=== PATIENT | male | born 1965 | race Caucasian/White ===

== ENCOUNTER 2017-12-03 16:35 | Emergency (ER) | payer OTHER ==
[2017-12-03] MEDS: KETOROLAC 30 MG/ML VIAL (J1885) IV (17:04)
[2017-12-03] MEDS: ONDANSETRON 4MG/2ML VIAL (J2405) IV (17:04)
[2017-12-03] MEDS: NS 1,000 ML IV (17:05)
[2017-12-03 17:07] LABS: HEMATOCRIT 45.3 % (42.0-52.0); HEMOGLOBIN 14.5 g/dl (13.5-17.5); MEAN CORPUSCULAR HEMOGLOBIN 25.4 pg (27.0-33.0); MEAN CORPUSCULAR VOLUME 79.5 fl (80.0-96.0); PLATELET COUNT, AUTOMATED 245 10^3/uL (150-450); RED CELL DISTRIBUTION WIDTH 13.8 % (11.5-14.5); WHITE BLOOD COUNT 15.1 10^3/uL (4.0-10.0)
[2017-12-03] MEDS ORDERED: METOCLOPRAMIDE INJ 10MG/2ML VIAL (J2765) As Ordered (17:25)
[2017-12-03] MEDS: METOCLOPRAMIDE INJ 10MG/2ML VIAL (J2765) IV (17:37)
[2017-12-03 17:42] LABS: ALBUMIN 4.1 GM/DL (3.2-5.2); ALBUMIN/GLOBULIN RATIO 1.32 (1.00-1.93); ALKALINE PHOSPHATASE 93 U/L (45-117); ALT/SGPT 74 U/L (12-78); ANION GAP 13 MEQ/L (8-16); AST/SGOT 37 U/L (7-37); BILIRUBIN,DIRECT 0.2 MG/DL (0.0-0.2); BILIRUBIN,TOTAL 0.8 MG/DL (0.2-1.0); BLOOD UREA NITROGEN 15 MG/DL (7-18); CALCIUM LEVEL 9.1 MG/DL (8.5-10.1); CARBON DIOXIDE LEVEL 21 MEQ/L (21-32); CHLORIDE LEVEL 110 MEQ/L (98-107); CREATININE FOR GFR 1.27 MG/DL (0.70-1.30); GLOMERULAR FILTRATION RATE > 60.0 (>56); GLUCOSE, FASTING 120 MG/DL (70-100); POTASSIUM SERUM 3.9 MEQ/L (3.5-5.1); SODIUM LEVEL 144 MEQ/L (136-145); TOTAL PROTEIN 7.2 GM/DL (6.4-8.2)
[2017-12-03] MEDS ORDERED: FLEET OIL RETENTION ENEMA PR (18:15)
[2017-12-03] MEDS: MAGNESIUM CITRATE 300 ML BTL PO (19:00)
== END 2017-12-03 19:07 | disposition home or self-care (01) ==
LOC: M ED 16:35
DX: K59.00 Constipation, unspecified (principal); I51.9 Heart disease, unspecified; E11.9 Type 2 diabetes mellitus without complications; E78.5 Hyperlipidemia, unspecified
CPT/HCPCS: J2405

== ENCOUNTER 2020-12-11 13:01 | Outpatient (RCR) | payer OTHER ==
[~2020-12-11 13:01] MED LIST: ASPI81TA85 PO; BACL10TA2 OR; BACL10TA2 PO; BUTR10DI2 TOP; DEXI60CA PO; LIPI10TA PO; LYRI20SO PO; METF500T PO; MICA5TAB OR; MICA5TAB PO; NEXI1CAP3 PO; NEXI20CA OR; NORT10CA2 OR; NORT50CA PO; TOPA25TA PO; ULTR50TA PO; VICO5TAB OR; VICO5TAB PO; WARF6TAB14 PO
[2020-12-19] MEDS ORDERED: PANT40TA29 PO (08:55)
[2020-12-19] MEDS ORDERED: GABA-283 PO (08:55)
[2020-12-19] MEDS ORDERED: XARE10TA PO (08:55)
[2020-12-19] MEDS ORDERED: TIZA4CAP6 PO (08:55)
[2020-12-19] MEDS ORDERED: METO50TA7 PO (08:55)
[2020-12-19] MEDS ORDERED: CLAR10CA3 PO (08:55)
[2020-12-19] MEDS ORDERED: METF500T13 PO (08:55)
[2020-12-19] MEDS ORDERED: ROSU20TA5 PO (08:55)
[2020-12-19] MEDS ORDERED: TRAM50TA2 PO (08:55)
== END 2021-01-06 | disposition still patient (30) ==
LOC: M OT 13:01
PROVIDERS: ATTEND Internal Medicine
DX: M25.549 Pain in joints of unspecified hand (principal)

== ENCOUNTER → 2020-12-24 | Outpatient (CLI) | payer OTHER ==
[~2020-12-24] MED LIST changes: +CLAR10CA3 PO; +GABA-283 PO; +METF500T13 PO; +METO50TA7 PO; +PANT40TA29 PO; +ROSU20TA5 PO; +TIZA4CAP6 PO; +TRAM50TA2 PO; +XARE10TA PO
== END ==
LOC: M LABSMTC 10:36
PROVIDERS: ATTEND Anesthesiology
DX: Z01.818 Encounter for other preprocedural examination (principal); Z11.52 Encounter for screening for COVID-19

== ENCOUNTER → 2020-12-24 | Outpatient (REF) | payer OTHER | LOC: M LAB REF 16:59 | PROVIDERS: ATTEND Surgery | DX: L72.3 Sebaceous cyst (principal) | CPT/HCPCS: 88305; U0003 ==